=== PATIENT | female | born 2000 | race Two or more races ===

== ENCOUNTER 2022-01-03 07:23 | Emergency (ER) | payer OTHER ==
[~2022-01-03] VITALS: Ht 142.2 cm; Wt 45.2 kg
[2022-01-03 07:57] LABS: COVID AG,FIA SOURCE NASOPHARYNGEAL
[2022-01-03 08:57] VITALS: BP 121/79
== END 2022-01-03 09:06 | disposition home or self-care (01) ==
LOC: EMS 07:29
DX: R09.89 Other specified symptoms and signs involving the circulatory and respiratory systems (principal); R05.9 Cough, unspecified; Z20.822 Contact with and (suspected) exposure to COVID-19
CPT/HCPCS: 71045; 99283; 99284